=== PATIENT | female | born 1995 | race Caucasian/White ===

== ENCOUNTER → 2022-12-01 | Outpatient (CLI) | payer BC ==
[~2022-12-01] MED LIST: AMPH20TA PO; BCP; BUSP7.5T5 PO; NF-ADDXR30 PO; SERT25TA PO
--- NOTE | 2022-12-01 12:35 | Diagnostic Imaging Report ---
PROCEDURE: US OB SINGLE FETUS <14 WKS. TECHNIQUE: Multiple real-time grayscale images were obtained over the gravid uterus in various projections. INDICATION: dating. There is an intrauterine gestational sac containing a pole consistent with 8 weeks 6 days gestation. heart rate was recorded at 170 bpm. No darron-gestational sac hemorrhage is identified. Gestational sac size is normal. Right ovary cannot be visualized due to overlying bowel gas. Left ovary measures 4.0 x 2.0 x 2.6 cm and shows normal blood flow. There is no free fluid identified. Left ovary does contain small approximately 2.1 cm cyst. IMPRESSION: Single live IUP 8 weeks 6 days gestational age with an estimated date of confinement sonographically of 07/07/2023. No complicating features are seen. Dictated by: Dictated on workstation # [id number]
== END ==
LOC: RAD 09:38
PROVIDERS: ATTEND Family Medicine
DX: Z36.87 Encounter for antenatal screening for uncertain dates (principal); Z3A.01 Less than 8 weeks gestation of pregnancy
CPT/HCPCS: 76801

== ENCOUNTER → 2023-02-20 | Outpatient (CLI) | payer BC ==
--- NOTE | 2023-02-20 11:55 | Diagnostic Imaging Report ---
INDICATION: anatomy survey TECHNIQUE: Multiple real-time grayscale images were obtained over the gravid uterus. COMPARISON: 12/01/2022 FINDINGS: Cervix measures 4.4 cm in length. Placenta is posterior position and there is no previa. DELPHINE is normal at 10.4 cm. Due to advanced gestational age, maternal adnexa are not well-visualized. The following structures are visualized and normal: Cerebral ventricles, cerebellum, cisterna magna, profile, vocal cord insertion, stomach, kidneys, three-vessel cord, spine, bilateral upper extremities, bilateral lower extremities, urinary bladder, four-chamber heart, diaphragm, right ventricular outflow tract, left ventricular outflow tract. Biometrical measurements are as follows: Biparietal 4.74 cm, age 20 weeks 3 days. Head circumference 18.85 cm, age 21 weeks 2 days. Abdominal circumference 16.28 cm, age 21 weeks 3 days. Femur length 3.53 cm, age 21 weeks 2 days. Sonographic estimate age: 21 weeks 1 days. Sonographic estimated date of delivery: 07/07/2023. Estimated Weight: 407 gm (+/- 60 gm). LMP percentile: 86%. heart rate: 150 beats per minute. number: 1 of 1. IMPRESSION: 1. Single live intrauterine has normal anatomy survey. Dictated by: Dictated on workstation # [id number]
== END ==
LOC: RAD 09:00
PROVIDERS: ATTEND Family Medicine
DX: Z34.92 Encounter for supervision of normal pregnancy, unspecified, second trimester (principal); Z3A.21 21 weeks gestation of pregnancy
CPT/HCPCS: 76805